=== PATIENT | female | born 1960 | race Caucasian/White ===

== ENCOUNTER 2025-01-23 09:05 | Outpatient (AMB) | payer OTHER, SELFPAY ==
[2025-01-23 09:15] VITALS: BMI 37.3
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
== END 2025-01-23 09:36 | disposition home or self-care (01) ==
LOC: HO.HPHYS 09:05
PROVIDERS: Visit Provider Physician Assistant
DX: M54.51 Vertebrogenic low back pain (principal)
CPT/HCPCS: 99214

== ENCOUNTER → 2025-01-23 09:05 | Outpatient (BNVA) | payer OTHER, SELFPAY | PROVIDERS: Visit Provider Physician Assistant | DX: M54.51 Vertebrogenic low back pain (principal); M54.2 Cervicalgia; M25.519 Pain in unspecified shoulder; G89.21 Chronic pain due to trauma; Z88.5 Allergy status to narcotic agent | CPT/HCPCS: 99212 ==